=== PATIENT | male | born 1985 | race American Indian/Alaskan Native ===

== ENCOUNTER 2017-03-09 20:39 | Emergency (ER) | payer MEDICAID ==
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
[2017-03-10] MEDS ORDERED: NORCO 5-325 TA1 EACH PO (00:41)
[2017-03-10] MEDS ORDERED: CEPHALEXIN500 MG PO (00:41)
--- NOTE | 2017-03-10 21:32 | EKG ---
[facility] [address] [place] [id number] Signed Normal sinus rhythm Normal ECG No previous ECGs available Confirmed by LEONEL RAI MD ([id number]) on 03/10/2017 9:32:43 PM Electronically Signed By: LEONEL RAI MD 03/10/17 2132 PATIENT NAME: ALEXUS THOMAS Electrocardiogram DATE OF : 89 PHYSICIAN: LEONEL RAI MD REPORT #: [id number] REPORT IS CONFIDENTIAL AND NOT TO BE RELEASED WITHOUT AUTHORIZATION
== END 2017-03-10 01:42 | disposition home or self-care (01) ==
LOC: ED 20:39 → EDBD 20:40 → ED 20:40
DX: S22.41XA Multiple fractures of ribs, right side, initial encounter for closed fracture (principal); S01.01XA Laceration without foreign body of scalp, initial encounter; S00.81XA Abrasion of other part of head, initial encounter; V89.2XXA Person injured in unspecified motor-vehicle accident, traffic, initial encounter
CPT/HCPCS: 70450; 71260; 72125; 73560; 74177; 80053; 81001; 82150; 82550; 85025; 86850; 86900; 86901; 93005; 93010; 99284; G0390; G0480; Q9967

== ENCOUNTER 2025-05-30 21:21 | Emergency (ER) | payer SELFPAY ==
[~2025-05-30] VITALS: Ht 180.3 cm; Wt 88.2 kg
[~2025-05-30 21:21] MED LIST: CEPHALEXIN500 MG PO; NORCO 5-325 TA1 EACH PO
[2025-05-30] MEDS ORDERED: TRUVADA 100 MG1 EACH PO (21:44)
[2025-05-30 21:59] LABS: BLOOD/HGB, URINE SMALL (Negative); KETONE, URINE NEGATIVE (Negative); LEUK ESTERASE, URINE SMALL (negative); NITRITE, URINE NEGATIVE (negative)
[2025-05-30 22:05] LABS: EPITHELIAL CELLS, URINE SQUAMOUS 1+ /lpf (0-1+)
[2025-05-30 22:06] LABS: BACTERIA, URINE 1+ /hpf (negative); CASTS, URINE MS \\lpf; CRYSTALS, URINE NONE SEEN (0-1+); REFLEX CULTURE, URINE Yes (No)
[2025-05-30] MEDS ORDERED: DOXYCYCLINE HYCLATE 100 MG HOME.PACK PO ONE (23:15)
[2025-05-30] MEDS ORDERED: CEFTRIAXONE SOD 500 MG VIAL IM ONE (23:15)
[2025-05-30 23:52] VITALS: BP 122/73
[2025-05-31 01:04] LABS: N. GONORRRHOEAE BY PCR NOT DETECTED (NOT DETECT)
== END 2025-05-30 23:54 | disposition home or self-care (01) ==
LOC: ED 21:21
PROVIDERS: Emergency Medicine
DX: N39.0 Urinary tract infection, site not specified (principal)
CPT/HCPCS: 81001; 87088; 96372; 99283; A9270; J0696